=== PATIENT | male | born 1955 | race Caucasian/White ===

== ENCOUNTER 2016-10-10 00:25 | Inpatient (IN) | payer MEDICARE ==
[~2016-10-10] VITALS: Ht 170.2 cm; Wt 76.2 kg
[2016-10-10 02:15] LABS: BUN/CREATININE RATIO 19 (0-10)
[2016-10-10 02:33] LABS: RED BLOOD COUNT 3.07 M/UL (4.20-5.50)
[2016-10-10 02:34] LABS: HEMOGLOBIN 5.8 gm/dl (14.0-17.5)
[2016-10-10] MEDS ORDERED: GLUCOPHAGE XR500 MG PO (09:52)
[2016-10-10] MEDS ORDERED: NORVASC 5 MG TAB5 MG PO (09:53)
[2016-10-10] MEDS ORDERED: LISINOPRIL20 MG PO (09:54)
[2016-10-10] MEDS ORDERED: PLAVIX 75 MG TA75 MG PO (09:54)
[2016-10-10] MEDS ORDERED: FERROUS SULFAT325 M2 PO (09:55)
[2016-10-10] MEDS ORDERED: GLUCOTROL 10 MG10 MG PO (09:56)
[2016-10-10] MEDS ORDERED: SINGULAIR10 MG PO (09:56)
[2016-10-10] MEDS ORDERED: PRAVACHOL80 MG PO (09:57)
[2016-10-10] MEDS ORDERED: LANTUS100 UNIT/1 SC (09:57)
[2016-10-10 12:46] LABS: HEMOGLOBIN 8.8 gm/dl (14.0-17.5)
[2016-10-10 16:06] LABS: HEMOGLOBIN 8.2 gm/dl (14.0-17.5)
[2016-10-10 21:58] LABS: HEMOGLOBIN 8.1 gm/dl (14.0-17.5)
[2016-10-11 03:30] LABS: HEMOGLOBIN 7.9 gm/dl (14.0-17.5); RED BLOOD COUNT 3.76 M/UL (4.20-5.50); WHITE BLOOD COUNT 8.5 K/UL (4.5-11.0)
[2016-10-11 03:58] LABS: BUN/CREATININE RATIO 16 (0-10)
[2016-10-12 03:55] LABS: HEMOGLOBIN 8.4 gm/dl (14.0-17.5); RED BLOOD COUNT 3.91 M/UL (4.20-5.50); WHITE BLOOD COUNT 8.4 K/UL (4.5-11.0)
[2016-10-12 04:03] LABS: BUN/CREATININE RATIO 18 (0-10)
--- NOTE | 2016-10-13 03:39 | NUR ---
PATIENT BP 86/48 AT 0300 PATIENT GIVEN METOPROLOL DURING NIGHTTIME MED PASS CHECKED ON PATIENT AND ASKED HOW HE WAS FEELING. PATIENT STATED FEELING WELL.
[2016-10-13 06:10] LABS: HEMOGLOBIN 8.9 gm/dl (14.0-17.5); RED BLOOD COUNT 4.11 M/UL (4.20-5.50); WHITE BLOOD COUNT 8.4 K/UL (4.5-11.0)
[2016-10-13 06:17] LABS: BUN/CREATININE RATIO 11 (0-10)
[2016-10-14 05:16] LABS: BUN/CREATININE RATIO 15 (0-10)
[2016-10-14 05:29] LABS: HEMOGLOBIN 8.4 gm/dl (14.0-17.5); RED BLOOD COUNT 3.92 M/UL (4.20-5.50); WHITE BLOOD COUNT 7.1 K/UL (4.5-11.0)
[2016-10-14] MEDS ORDERED: ASPIR 8181 MG PO (20:54)
[2016-10-14] MEDS ORDERED: TOPROL XL 25 MG25 MG PO (20:56)
[2016-10-14] MEDS ORDERED: PROTONIX 40 MG40 M1 PO (20:58)
== END 2016-10-14 21:30 | disposition home or self-care (01) | DRG 812 ==
LOC: ER1 00:25 → M/S 03:19 → CCU 03:19 → ZEROF 03:19 → CCU 04:36 → M/S 10-12 06:00
PROVIDERS: Emergency Medicine; Internal Medicine; ADMIT Internal Medicine
PROC: 30233N1 Transfusion of Nonautologous Red Blood Cells into Peripheral Vein, Percutaneous Approach (ICD-10-PCS; principal; 2016-10-10)
PROC: 0DB68ZX Excision of Stomach, Via Natural or Artificial Opening Endoscopic, Diagnostic (ICD-10-PCS; 2016-10-11)
PROC: 3E0234Z Introduction of Serum, Toxoid and Vaccine into Muscle, Percutaneous Approach (ICD-10-PCS; 2016-10-13)
PROC: 0DJD8ZZ Inspection of Lower Intestinal Tract, Via Natural or Artificial Opening Endoscopic (ICD-10-PCS; 2016-10-13)
DX: D50.0 Iron deficiency anemia secondary to blood loss (chronic) (principal); I24.8 Other forms of acute ischemic heart disease; I50.22 Chronic systolic (congestive) heart failure; K92.1 Melena; K25.9 Gastric ulcer, unspecified as acute or chronic, without hemorrhage or perforation; K57.30 Diverticulosis of large intestine without perforation or abscess without bleeding; Q27.33 Arteriovenous malformation of digestive system vessel; I34.0 Nonrheumatic mitral (valve) insufficiency; E11.649 Type 2 diabetes mellitus with hypoglycemia without coma; R07.9 Chest pain, unspecified; J44.9 Chronic obstructive pulmonary disease, unspecified; I11.0 Hypertensive heart disease with heart failure; F17.210 Nicotine dependence, cigarettes, uncomplicated; I70.301 Unspecified atherosclerosis of unspecified type of bypass graft(s) of the extremities, right leg; K64.8 Other hemorrhoids; E78.5 Hyperlipidemia, unspecified; K21.9 Gastro-esophageal reflux disease without esophagitis; Z86.73 Personal history of transient ischemic attack (TIA), and cerebral infarction without residual deficits; Z91.14 Patient's other noncompliance with medication regimen; Z72.3 Lack of physical exercise; Z82.3 Family history of stroke; Z79.82 Long term (current) use of aspirin; Z79.01 Long term (current) use of anticoagulants; Z79.52 Long term (current) use of systemic steroids; Z79.899 Other long term (current) drug therapy; Z79.84 Long term (current) use of oral hypoglycemic drugs; Z79.4 Long term (current) use of insulin
CPT/HCPCS: ECHO; 36415; 71010; 80048; 80053; 82272; 82550; 82553; 82607; 82728; 82962; 83540; 83550; 83880; 84443; 84484; 85014; 85018; 85025; 85027; 86850; 86900; 86901; 86920; 93005; 93306; 94640; 94664; 94760; 99291; C9113; J1940; J2250; J3010; J7040; J7050; P9016

== ENCOUNTER 2016-10-16 05:21 | Inpatient (IN) | payer MEDICARE ==
[~2016-10-16] VITALS: Ht 177.8 cm; Wt 83.5 kg
[~2016-10-16 05:21] MED LIST: ASPIR 8181 MG PO; FERROUS SULFAT325 M2 PO; GLUCOPHAGE XR500 MG PO; GLUCOTROL 10 MG10 MG PO; LANTUS100 UNIT/1 SC; LISINOPRIL20 MG PO; NORVASC 5 MG TAB5 MG PO; PLAVIX 75 MG TA75 MG PO; PRAVACHOL80 MG PO; PROTONIX 40 MG40 M1 PO; SINGULAIR10 MG PO; TOPROL XL 25 MG25 MG PO
[2016-10-16 05:52] LABS: HEMOGLOBIN 9.1 gm/dl (14.0-17.5); RED BLOOD COUNT 4.27 M/UL (4.20-5.50)
[2016-10-16 05:59] LABS: WHITE BLOOD COUNT 12.2 K/UL (4.5-11.0)
[2016-10-16 06:15] LABS: BUN/CREATININE RATIO 18 (0-10)
[2016-10-17 06:11] LABS: HEMOGLOBIN 7.8 gm/dl (14.0-17.5)
[2016-10-17 06:12] LABS: RED BLOOD COUNT 3.7 M/UL (4.20-5.50); WHITE BLOOD COUNT 6.9 K/UL (4.5-11.0)
[2016-10-17 06:13] LABS: BUN/CREATININE RATIO 20 (0-10)
[2016-10-18 04:03] LABS: HEMOGLOBIN 8.7 gm/dl (14.0-17.5); RED BLOOD COUNT 4.04 M/UL (4.20-5.50); WHITE BLOOD COUNT 7.5 K/UL (4.5-11.0)
[2016-10-18 04:14] LABS: BUN/CREATININE RATIO 14 (0-10)
[2016-10-19 04:14] LABS: BUN/CREATININE RATIO 14 (0-10)
[2016-10-19 04:15] LABS: HEMOGLOBIN 9.1 gm/dl (14.0-17.5); RED BLOOD COUNT 4.1 M/UL (4.20-5.50)
[2016-10-20 03:48] LABS: HEMOGLOBIN 9.2 gm/dl (14.0-17.5); RED BLOOD COUNT 4.35 M/UL (4.20-5.50)
[2016-10-20 03:49] LABS: WHITE BLOOD COUNT 7.6 K/UL (4.5-11.0)
[2016-10-20 04:02] LABS: BUN/CREATININE RATIO 18 (0-10)
[2016-10-21 04:35] LABS: RED BLOOD COUNT 4.65 M/UL (4.20-5.50); WHITE BLOOD COUNT 6.8 K/UL (4.5-11.0)
[2016-10-21 04:43] LABS: BUN/CREATININE RATIO 18 (0-10)
[2016-10-22 05:16] LABS: HEMOGLOBIN 9.7 gm/dl (14.0-17.5); RED BLOOD COUNT 4.45 M/UL (4.20-5.50); WHITE BLOOD COUNT 6.1 K/UL (4.5-11.0)
[2016-10-22 05:20] LABS: BUN/CREATININE RATIO 25 (0-10)
[2016-10-23 04:10] LABS: HEMOGLOBIN 9.8 gm/dl (14.0-17.5); RED BLOOD COUNT 4.51 M/UL (4.20-5.50); WHITE BLOOD COUNT 5.5 K/UL (4.5-11.0)
[2016-10-23 04:25] LABS: BUN/CREATININE RATIO 19 (0-10)
[2016-10-23] MEDS ORDERED: ALDACTONE25 MG PO (11:04)
[2016-10-23] MEDS ORDERED: LIPITOR80 MG PO (11:14)
[2016-10-23] MEDS ORDERED: LASIX20 MG PO (11:17)
[2016-10-23] MEDS ORDERED: PLAVIX 75 MG TA75 MG PO (11:17)
[2016-10-23] MEDS ORDERED: ANORO ELLIPTA1 EACH INH (11:20)
[2016-10-23] MEDS ORDERED: VENTOLIN HFA 66.7 GM INH (11:29)
[2016-10-23] MEDS ORDERED: VENTOLIN/PROVE0.5 ML INH (11:32)
== END 2016-10-23 10:40 | disposition home or self-care (01) | DRG 208 ==
LOC: ER1 05:21 → ZEROF 08:48 → PROG CARE 08:48 → CCU 08:48 → PROG CARE 10-21 13:00
PROVIDERS: Family Medicine; Internal Medicine; ADMIT Internal Medicine Infectious Disease
PROC: 5A1945Z Respiratory Ventilation, 24-96 Consecutive Hours (ICD-10-PCS; principal; 2016-10-16)
PROC: 0BH17EZ Insertion of Endotracheal Airway into Trachea, Via Natural or Artificial Opening (ICD-10-PCS; 2016-10-16)
DX: J44.1 Chronic obstructive pulmonary disease with (acute) exacerbation (principal); J96.01 Acute respiratory failure with hypoxia; I50.43 Acute on chronic combined systolic (congestive) and diastolic (congestive) heart failure; J96.02 Acute respiratory failure with hypercapnia; E87.1 Hypo-osmolality and hyponatremia; I47.2 Ventricular tachycardia; Q27.33 Arteriovenous malformation of digestive system vessel; I11.0 Hypertensive heart disease with heart failure; E11.649 Type 2 diabetes mellitus with hypoglycemia without coma; I27.2 Other secondary pulmonary hypertension; D50.9 Iron deficiency anemia, unspecified; I95.9 Hypotension, unspecified; E87.6 Hypokalemia; R94.39 Abnormal result of other cardiovascular function study; I73.9 Peripheral vascular disease, unspecified; F17.210 Nicotine dependence, cigarettes, uncomplicated; I08.1 Rheumatic disorders of both mitral and tricuspid valves; K21.9 Gastro-esophageal reflux disease without esophagitis; G89.4 Chronic pain syndrome; E78.5 Hyperlipidemia, unspecified; K57.30 Diverticulosis of large intestine without perforation or abscess without bleeding; Z86.73 Personal history of transient ischemic attack (TIA), and cerebral infarction without residual deficits; Z82.3 Family history of stroke; Z79.4 Long term (current) use of insulin; Z72.3 Lack of physical exercise; Z79.82 Long term (current) use of aspirin; Z79.84 Long term (current) use of oral hypoglycemic drugs; Z79.51 Long term (current) use of inhaled steroids; Z79.899 Other long term (current) drug therapy
CPT/HCPCS: 31500; 36415; 36600; 71010; 71020; 78452; 80048; 80053; 80202; 81001; 82009; 82550; 82553; 82803; 82962; 83540; 83550; 83605; 83735; 83874; 83880; 84100; 84132; 84484; 85025; 85027; 87040; 87070; 87086; 87205; 93005; 93017; 94002; 94003; 94060; 94640; 94660; 94664; 94729; 96361; 96365; 96375; 96376; 97535; 99291; A4628; A9502; C9113; G0008; J0330; J1250; J1756; J1815; J1940; J2060; J2543; J2785; J2930; J3370; J7030; J7050; J7070; Q2039

== ENCOUNTER → 2021-10-03 | Outpatient (CLI) | payer OTHER ==
[~2021-10-03] MED LIST changes: +ALDACTONE25 MG PO; +ANORO ELLIPTA1 EACH INH; +GLUCOPHAGE1000 MG PO; +LASIX20 MG PO; +LIPITOR80 MG PO; +VENTOLIN HFA 66.7 GM INH; +VENTOLIN/PROVE0.5 ML INH
== END ==
LOC: KOH-I 10:52
DX: F17.210 Nicotine dependence, cigarettes, uncomplicated (principal)
CPT/HCPCS: 71271